=== PATIENT | female | born 1975 | race Caucasian/White ===

== ENCOUNTER 2017-10-01 11:07 | Emergency (ER) | payer OTHER ==
[~2017-10-01] VITALS: Ht 177.8 cm; Wt 59.0 kg
[2017-10-01] MEDS ORDERED: WELLBUTRIN SR100 MG (11:51)
== END 2017-10-01 13:54 | disposition home or self-care (01) ==
LOC: ER 11:07
DX: M25.522 Pain in left elbow (principal)